=== PATIENT | female | born 1975 | race Caucasian/White ===

== ENCOUNTER 2023-05-03 12:59 | Outpatient (AMB) | payer BC, SELFPAY ==
--- NOTE | 2023-05-03 13:41 | AM.OFFWIN_ITS ---
Intake Vital Signs 05/03/23 13:43 Height 5 ft 2 in Weight 78.925 kg BMI 31.8 BP 130/80 Blood Pressure Location Rt brachial Position Sitting Pulse 97 Pulse Source Pulse Oximeter Pulse Oximetry (%) 98 Oxygen Delivery Method Room Air Intake Visit Reasons: [facility] mouth infection Intake Note: Patient here for possible Thrush of the mouth for about 4-5 days and has white cottage cheese like on tongue and has weird taste in her mouth. Patient Tobacco Use Status: Current everyday Tobacco user Allergies No Known Allergies Allergy (Verified 05/03/23 13:45) Do you need a note to return to daycare/school/sports/work: No HPI HPI Comments History of Present Illness Details 47-year-old female presents with a disco loration to her tongue consistent with candidiasis. She does not report being diabetic, and has had no change in eating habits, denies weight loss or gain, chest pain or pressure, fevers or chills. REPLACED BY [facility] Patient Tobacco Use Status: Current everyday Tobacco user Review of Systems Const Details: Constitutional: No Fever, No Chills ENT/Mouth: No Ear Pain, No Hoarseness, No sore throat, positive tongue discoloration Eyes: No Eye Pain, No Swelling, No Redness, No Foreign Body Cardiovascular: No Chest Pain, No SOB Respiratory: No Cough, No Dyspnea Gastrointestinal: No Nausea, No Vomiting, No Diarrhea, No abdominal Pain Genitourinary: No Dysuria, No Hematuria Musculoskeletal: No joint pain, No Myalgias, No Joint Swelling Skin: No Skin lacerations, No rash Neuro: No Weakness, No Numbness, No Paresthesias, No Dizziness, No Headache All systems reviewed & are unremarkable except as noted in HPI and below Physical Exam Vital Signs: Last Vital Signs Pulse 97 05/03/23 13:43 BP 130/80 05/03/23 13:43 Pulse Ox 98 05/03/23 13:43 Oxygen Delivery Method Room Air 05/03/23 13:43 BMI result Body Mass Index 31.8 Appearance: Alert. Oriented X3. No acute distress. Eyes: Pupils equal, round and reactive to light. ENT: Pharynx normal. Positive brown white discoloration to the tongue and back of pharynx consistent with candidiasis. Neck: Normal inspection. Neck supple. CVS: Normal heart rate and rhythm. Respiratory: No respiratory distress. Skin: Skin warm and dry. Normal skin color. Normal skin turgor. Neuro: No motor deficit. No sensory deficit. Assessment & Plan Assessment & Plan (1) Oral candidiasis: Code(s): B37.0 - Candidal stomatitis Plan: 47-year-old female presents with an oral discoloration on her tongue. States it has been present for about a week, she has been brushing her teeth, brushing her tongue, and did some [employer] research and feels that this could possibly be candidiasis. While I do agree with her assessment, patient is not diabetic, is not immunocompromised, and has not had a change in diet, denies weight loss or gain, and has no other concerning symptoms. Patient is able to swallow without difficulty. Has no fevers or chills. Plan of care is to treat with Diflucan 150 mg tablets today, then repeat in 3 days from now. Patient does understand that she must follow-up with primary care physician as this is an unusual finding and person was not immunocompromised are not diabetic. Patient verbalized understanding of and agrees to plan of care discharge home. Verbalized understanding of signs and symptoms indicating need for emergent differential. Medications: New fluconazole 150 mg PO Q3D 2 tabs 0RF Oral candidiasis Patient Instructions: You were evaluated for discoloration to her tongue. This is consistent with oral candidiasis. Take Diflucan 150 mg tablet today, then repeat in 3 days. Do not drink any alcohol with this medication. You will suffer serious side effects if you mix alcohol with this medication. You must follow up with primary care provider for further testing. Thank you for choosing this urgent care for evaluation. Please follow-up with primary care physician as needed. Return to the emergency department for any new, concerning, or worsening symptoms. Coding Level of Care Code Est Pt Level 3 (60669) Diagnoses Oral candidiasis B37.0
[2023-05-03 13:43] VITALS: BP 130/80; PULSE 97; O2SAT 98; BMI 31.8
== END 2023-05-03 14:41 | disposition home or self-care (01) ==
PROVIDERS: PCP Internal Medicine; Visit Provider Nurse Practitioner Family
DX: B37.0 Candidal stomatitis (principal)
CPT/HCPCS: 99213